=== PATIENT | female | born 1965 | race Caucasian/White ===

== ENCOUNTER 2022-11-10 22:40 | Emergency (ER) | payer OTHER, SELFPAY ==
--- NOTE | ~2022-11-10 | XR_ITS ---
EXAMINATION: XR chest 1V portable INDICATION: Chest pain TECHNIQUE: Portable AP chest at 2320 hours COMPARISON: None available FINDINGS: A masslike opacity projects in the medial left lung base. No pleural effusion or pneumothor ax. The cardiomediastinal silhouette is normal. IMPRESSION: 1. No acute cardiopulmonary abnormality. 2. Masslike opacity in the medial left lung base which could reflect lung mass or possibly eventratio n of the diaphragm. Recommend correlation with any prior imaging. If unavailable, further evaluation with CT of the chest is recommended. Reviewed, dictated and finalized at location A. IMPRESSION: 1. No acute cardiopulmonary abnormality. 2. Masslike opacity in the medial left lung base which could reflect lung mass or possibly eventration of the diaphragm. Recommend correlation with any prior imaging. If unavailable, further evaluation with CT of the chest is recommended .
--- NOTE | 2022-11-10 22:58 | ECG_ITS ---
Measurements Intervals Burns Rate: 113 P: 69 WI: 164 QRS: 16 QRSD: 73 T: 62 QT: 331 QTc: 455 Interpretive Statements SINUS TACHYCARDIA BASELINE ARTIFACT- I, AVR, AVL, AVF, V1-V6 ABNORMAL ECG NO PREVIOUS ECG AVAILABLE FOR COMPARISON Electronically Signed On 11-11-2022 7:41:03 CDT by Mohamud Bunch D.O.
[2022-11-10 23:11] VITALS: PULSE 77; RESP 14
[2022-11-10] MEDS: IPRATROPIUM BR 0.02% INH SOLN 0.5 MG/2.5 ML VIAL INHALATION (23:11)
[2022-11-10] MEDS: ALBUTEROL SULFATE NEB 2.5 MG/3 ML INH INHALATION (23:11)
[2022-11-10] MEDS: ASPIRIN 81 MG CHEWABLE TABLET 324 MG PO (23:15)
[2022-11-10] MEDS: methylPREDNISolone SOD SUCC 125 MG VIAL IV PUSH (23:19)
[2022-11-10] MEDS: MORPHINE SULFATE (*CRX) 4 MG/ML INJ IV PUSH (23:19)
--- NOTE | 2022-11-10 23:20 | ED.GENADULT ---
HPI - General Adult General Chief complaint: Chest Pain Stated complaint: SOB,CP Time Seen by Provider: 11/10/22 23:02 History of Present Illness HPI narrative: Patient is a 57-year-old female who presents to the emergency department with chief complaint of chest pain and shortness of breath. Patient has prior history of COPD and asthma and this evening was at a local establishment and had a few drinks and complains that she is having pain in the left side of her chest patient states the pain feels as though the rib is popping out and does report that she has been coughing and has been more short of breath lately. The patient denies fever the patient reports no prior history of intubation for her COPD. Review of Systems Review of Systems: A 10 system review of systems was completed on the patient and is negative except for what is stated in the HPI. Nursing and ancillary documentation was reviewed. Exam Narrative: GENERAL: Noncooperative, appears to be in moderate pain holding the ribs on the left side of her chest. HEAD: Normocephalic, atraumatic. EYES: PERRLA and EOMI. ENT: Nares clear, no rhinorrhea or epistaxis. Mucous membranes moist. NECK: Supple. CHEST: Clear to auscultation. No respiratory distress. HEART: Regular rate and rhythm. No murmur heard. Normal peripheral pulses. ABDOMEN: Soft, nontender, nondistended, normal active bowel sounds. EXTREMITIES: Normal range of motion. No edema. SKIN: Warm, dry, no rash. NEURO: No focal deficits. Alert and oriented x3. PSYCH: Normal mood and affect. Course Vital Signs Vital signs: Vital Signs Pulse Rate 77 11/10/22 23:11 Respiratory Rate 14 11/10/22 23:11 Pulse Rate 93 11/11/22 00:18 Respiratory Rate 14 11/11/22 00:18 Blood Pressure 104/76 11/11/22 00:18 Pulse Oximetry 96 11/11/22 00:18 Oxygen Delivery Nasal Cannula 11/10/22 23:54 Oxygen Flow Rate 2 11/10/22 23:54 Medical Decision Making [facility] Narrative Medical decision making narrative: Differential diagnosis includes acute alcohol intoxication ACS, COPD exacerbation, pneumonia, pneumothorax, Patient received a DuoNeb IV steroids EKG showed sinus tachycardia rate of [address] elevation or ST depression Chest x-ray interpreted by me showed no evidence of pneumothorax or widened mediastinum COVID and influenza test were negative EtOH was 311 Troponin was negative Electrolytes are within normal limits lipase is also normal While in the emergency department the patient became agitated and decided that she did not want to stay and decided to leave AGAINST MEDICAL ADVICE nursing staff explained risk and benefits to leaving and the patient excepted these risk patient did not sign the AMA paperwork prior to leaving Vital Signs Vital Signs: Vital Signs Pulse Rate 77 11/10/22 23:11 Respiratory Rate 14 11/10/22 23:11 Pulse Rate 93 11/11/22 00:18 Respiratory Rate 14 11/11/22 00:18 Blood Pressure 104/76 11/11/22 00:18 Pulse Oximetry 96 11/11/22 00:18 Oxygen Delivery Nasal Cannula 11/10/22 23:54 Oxygen Flow Rate 2 11/10/22 23:54 Lab Data 11/10/22 23:16 11/10/22 23:16 Labs: Lab Results 11/10/22 11/10/22 11/10/22 Range/Units 23:16 23:16 23:16 WBC 14.3 H (4.5-10.0) K/mm3 RBC 4.22 (4.2-5.4) M/mm3 Hgb 14.2 (12.0-15.0) g/dL Hct 41.5 (37.0-47.0) % MCV 98.3 (80-100) fl MCH 33.6 (26-34) pg MCHC 34.2 (32-36) g/dl RDW 13.4 (11.5-14.5) % Plt Count 245 (150-375) k/mm3 MPV 9.9 (7.4-10.4) fl Immature Gran % (Auto) 0.3 (0-0.5) % Neut % (Auto) 41.1 L (45.5-73.1) % Lymph % (Auto) 47.1 H (18.3-44.2) % [place] % (Auto) 8.6 H (2.6-8.5) % Eos % (Auto) 1.8 (0-4.4) % Baso % (Auto) 1.1 (0.2-1.2) % Lymph # (Auto) 6.76 H (0.9-3.2) K/mm3 [place] # (Auto) 1.2 H (0.1-0.6) K/mm3 Eos # (Auto) 0.3 (0-0.3) K/mm3 Baso # (Auto) 0.2 H (0.0-0.1) K
[2022-11-10 23:21] LABS: Basophils Absolute Auto 0.2 K/mm3 (0.0-0.1); Basophils Percent Auto 1.1 % (0.2-1.2); Eosinophils Absolute Auto 0.3 K/mm3 (0-0.3); Eosinophils Percent Auto 1.8 % (0-4.4); Hematocrit 41.5 % (37.0-47.0); Hemoglobin 14.2 g/dL (12.0-15.0); Immature Granulocyte Absolute 0.04 K/mm3 (0.00-0.031); Immature Granulocyte Percent A 0.3 % (0-0.5); Lymphocytes Absolute Auto 6.76 K/mm3 (0.9-3.2); Lymphocytes Percent Auto 47.1 % (18.3-44.2); Mean Corpuscular HGB Conc 34.2 g/dl (32-36); Mean Corpuscular Hemoglobin 33.6 pg (26-34); Mean Corpuscular Volume 98.3 fl (80-100); Mean Platelet Volume 9.9 fl (7.4-10.4); Monocytes Absolute Auto 1.2 K/mm3 (0.1-0.6); Monocytes Percent Auto 8.6 % (2.6-8.5); Neutrophils Absolute Auto 5.9 K/mm3 (1.3-6.7); Neutrophils Percent Auto 41.1 % (45.5-73.1); Platelet Count Result 245 k/mm3 (150-375); Red Blood Count 4.22 M/mm3 (4.2-5.4); Red Cell Distribution Width 13.4 % (11.5-14.5); White Blood Count 14.3 K/mm3 (4.5-10.0)
[2022-11-10 23:34] LABS: Prothrombin Time 12.6 Seconds (11.1-14.7)
[2022-11-10 23:38] LABS: Alanine Aminotransferase 40 U/L (6-35); Albumin Level 4.8 g/dL (3.5-5.1); Alkaline Phosphatase 78 U/L (38-126); Anion Gap 11 mmol/L (8-16); Aspartate Amino Transferase 36 U/L (14-36); Bilirubin,Total 0.3 mg/dL (0.2-1.3); Blood Urea Nitrogen 11 mg/dL (7-17); Calcium 9.4 mg/dL (8.4-10.2); Carbon Dioxide 23 mmol/L (22-30); Chloride 108 mmol/L (98-107); Estimated Glomerular Filt Rate > 60; Glucose 104 mg/dL (65-110); Lipase 55 U/L (23-300); Potassium 4.1 mmol/L (3.4-5.0); Sodium 142 mmol/L (137-145)
[2022-11-10 23:47] LABS: NT Pro B Type Natriuretic Pept 29 pg/mL (19.9-100); Troponin I < 0.012 ng/mL (0.000-0.034)
[2022-11-10 23:54] VITALS: O2SAT 91
[2022-11-10 23:57] LABS: Ethanol 311 mg/dL (<10)
[2022-11-11 00:03] VITALS: BP 100/60; PULSE 91; RESP 16; O2SAT 96
[2022-11-11 00:18] VITALS: BP 104/76; PULSE 93; RESP 14; O2SAT 96
[2022-11-11 00:46] LABS: Influenza A QL RT-PCR Negative (Negative); Influenza B QL RT-PCR Negative (Negative); SARS-CoV-2 RNA PCR Negative
--- NOTE | 2022-11-11 01:30 | PC.NURSE ---
pt. family called out reporting pt. was having a sz pt. not answering RN, pt. has no known sz disorder. RN sternal rubbed pt. due to not responding to verbal stimuli. pt. responded to painful stimuli and acting appropriate on stretcher.
== END 2022-11-11 01:45 | disposition left against medical advice (07) ==
PROVIDERS: Emergency Provider Emergency Medicine; PCP Family Medicine
DX: R07.89 Other chest pain (principal); J44.9 Chronic obstructive pulmonary disease, unspecified; F10.129 Alcohol abuse with intoxication, unspecified; Z20.822 Contact with and (suspected) exposure to COVID-19
CPT/HCPCS: 36415; 71045; 80053; 80307; 83690; 83880; 84484; 85025; 85610; 85730; 87636; 93005; 94640; 96374; 96375; 99284; A9270; J2270; J2930

== ENCOUNTER 2023-11-20 14:24 | Emergency (ER) | payer OTHER, SELFPAY ==
[2023-11-20 14:34] VITALS: BP 113/77; PULSE 102; RESP 18; TEMP 36.2; O2SAT 97
--- NOTE | 2023-11-20 15:38 | PC.NURSE ---
Pt LWBS causing a scene in lobby.
== END 2023-11-20 15:46 | disposition left against medical advice (07) ==
LOC: ANHED 15:43
PROVIDERS: PCP Family Medicine
DX: Z53.21 Procedure and treatment not carried out due to patient leaving prior to being seen by health care provider (principal)
CPT/HCPCS: 99199

== ENCOUNTER 2024-09-17 13:30 | Outpatient (RCR) | payer MEDICAID, OTHER, SELFPAY ==
--- NOTE | 2024-07-06 09:12 | OPREHPOC ---
Outpatient Therapy Plan of Care This is a Multidisciplinary Plan of Care that may contain components documented by all disciplines (PT, OT, and ST.) PT Problem 1 PT Problem #1 Knowledge Deficit PT Goal 1 Goal / Goal Update [place] with HEP Target Visit 4 PT Goal 2 Goal / Goal Update Patient will report pain no greater than 3/10 consistently for 2 weeks Target Visit 8 PT Problem 2 PT Problem #2 Impaired Gait PT Goal 1 Goal / Goal Update Patient will demonstrate proper use of single point cane in left hand with reduced trunk lean Target Visit 10 PT Goal 2 Goal / Goal Update Patient will improve 2 minute walk test to 300' with use of single point cane Target Visit 10 PT Problem 3 PT Problem #3 Impaired Strength PT Goal 1 Goal / Goal Update Improve R knee extension strength to 4+/5 to improve stability with ADL and walking Target Visit 10 PT Goal 2 Goal / Goal Update Improve R hip abduction strength to 4/5 to improve lateral stability with gait and transfers Target Visit 10 PT Goal 1 Goal / Goal Update Improve R hip flexion strength to 4+/5 to improve foot control and progression with gait and transfers Target Visit 10
--- NOTE | 2024-07-06 09:12 | PTOPEVAL1 ---
Assessment and note entered by Juwan Kirkland, PT Evaluation Information Assessment Status Evaluation Diagnosis S72.91xa Fracture R Femur ICD-10 Condition Codes (PT) Pain in right hip M25.551 Onset February 2024 Subjective Information Original injury occurred with a fall in the middle of the night. She was independent prior to fall. Reports that she had home health following fracture and surgery. She did not have any rehab stay and this is the first she is starting outpatient therapy since. Reports that she is hurting all the time and she is using Lidocaine patches on her hip for the pain and they seem to help a little. She reports taking hydrocodone for pain. She currently cannot traverse stairs and is dependent on cane for mobility and safety. She is not sleeping well as she cannot put any pressure on her right leg and hip. She can get around the house but cannot do any sort of distance without a lot of difficulty. 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 Reported Pain Level Pain Score 9: Self Report Assessment PT Clinical Summary Patient presents with right hip weakness, poor ROM , and poor knee control. Patient has developed bad habits including improper use of single point cane, poor foot progression, and poor stability of hip during ADL performance. Patient really struggled with use of single point cane and gait training and will need extensive training. Will benefit form skilled therapy to address ROM, strength, and functional deficits including combination of functional land and aquatic therapy . Plan of Care Interventions Electrical Stimulation,Gait Training,Hot Pack/Cold Pack,Manual Therapy,Neuro Re-education, Therapeutic Activities,Therapeutic Exercise PT Services Indicated Yes Treatment Frequency and 2x/week for 10 visits Duration These treatments will address the objective and functional deficits as defined above. The patient will be advanced safely and appropriately in order for the patient to progress towards his/her prior level of function. Additional exercises will be introduced and as well as a comprehensive home exercise program upon discharge, if needed, ?to ensure carryover of functional gains achieved in the clinic. This treatment plan has been reviewed and agreement upon by the patient.
--- NOTE | 2024-07-21 14:04 | PCPTNOTE ---
called and canceled , ill. AKS
--- NOTE | 2024-07-28 15:13 | PCPTNOTE ---
Pt arrived for pool appt. but forgot her swim suit, pt agreed to land appt. and when therapist came to bring her back she said she had anther appt that she needed to get too (dog neutered) and had to cancel.
--- NOTE | 2024-08-07 14:09 | OPREHPOC ---
Outpatient Therapy Plan of Care This is a Multidisciplinary Plan of Care that may contain components documented by all disciplines (PT, OT, and ST.) PT Problem 1 PT Problem #1 Knowledge Deficit PT Goal 1 Goal / Goal Update [place] with HEP 08-07-24 progress goal met continue to progress HEP and education Target Visit 17 PT Goal 2 Goal / Goal Update Patient will report pain no greater than 3/10 consistently for 2 weeks 08-07-24 progress goal not met; pain at 9/10 at worst NEW GOAL: pain rating 6/10 at worst Target Visit 17 PT Problem 2 PT Problem #2 Impaired Gait PT Goal 1 Goal / Goal Update Patient will demonstrate proper use of single point cane in left hand with reduced trunk lean 08-07-24 progress goal met Target Visit 10 Progress Met PT Goal 2 Goal / Goal Update Patient will improve 2 minute walk test to 300' with use of single point cane 08-07-24 progress goal not met, improved to 230' continue towards goal Target Visit 17 PT Problem 3 PT Problem #3 Impaired Strength PT Goal 1 Goal / Goal Update Improve R knee extension strength to 4+/5 to improve stability with ADL and walking 08-07-24 progress goal not met continue towards Target Visit 17 PT Goal 2 Goal / Goal Update Improve R hip abduction strength to 4/5 to improve lateral stability with gait and transfers 08-07-24 progress goal not met continue towards Target Visit 17 PT Goal 1 Goal / Goal Update Improve R hip flexion strength to 4+/5 to improve foot control and progression with gait and transfers 08-07-24 progress goal not met continue towards Target Visit 17
--- NOTE | 2024-08-07 14:09 | PTOPPROG ---
Assessment and note entered by Kirstie Davis, PT Assessment Status Progress Diagnosis S72.91xa Fracture R Femur ICD-10 Condition Codes (PT) Pain in right hip M25.551 Onset February 2024 Subjective Information since starting therapy, able to get around the house a little better; with taking a shower yesterday, was able to get into shower by myself; now can get myself in and out of the car- boyfriend does not have to lift my leg for me; drove for the first time last week; stairs are easier to do now. with grocery shopping, have to use the motorized cart. want to continue therapy to get leg stronger PAIN: range in the past week: -04/28: R lateral hip and medial knee increase pain: standing 5 minutes, then have to sit down, lie on R side; decrease pain: sit down, lie down with pillow under knee; hydrocodone 3x/day; with sleeping- pain awakens her 2-3 x/night and then cannot fall back asleep Assessment PT Clinical Summary [place] has received 9 PT sessions. Compared to the initial evaluation: pain of R lateral hip and medial knee from to ; self assessment with LE functional scale rating from 81 to 85% limitation in activity level; reported standing tolerance of 5 minutes and with sleeping, awaken 2-3 x/night due to pain; 2 minute walking test distance from 160' to 230', with use of cane; with walking, decreased weight shift onto R LE--pain increase with full weight on R LE; decreased R knee ROM (-5') to 95'; slight increase in strength, but continues to have weakness of R hip and knee; on stairs uses one hand railing and cane; Education for HEP and gait pattern. The goals were partially met. Continue PT for further strengthening and improve mobility skills. Plan of Care Interventions Aquatic Therapy,Gait Training,Hot Pack/Cold Pack, Manual Therapy,Neuro Re-education,Patient/ Caregiver Education,Therapeutic Activities, Therapeutic Exercise,Ultrasound PT Services Indicated Yes Treatment Frequency and 2x/wk for 8 visits Duration These treatments will address the objective and functional deficits as defined above. The patient will be advanced safely and appropriately in order for the patient to progress towards his/her prior level of function. Additional exercises will be introduced and as well as a comprehensive home exercise program upon discharge, if needed, ?to ensure carryover of functional gains achieved in the clinic. This treatment plan has been reviewed and agreement upon by the patient.
--- NOTE | 2024-08-27 16:17 | PCPTNOTE ---
Pt cancelled appt stating she can not make no other reason.
--- NOTE | 2024-09-01 14:09 | PCPTNOTE ---
Pt canceled due to having an MRI and she may need surgery.
--- NOTE | 2024-09-10 14:43 | PCPTNOTE ---
Pt called to cancel her appointment due to not having a ride.
--- NOTE | 2024-09-17 14:18 | PTOPDC ---
Assessment and note entered by Kirstie Davis, PT Assessment Status Discharge Diagnosis S72.91xa Fracture R Femur ICD-10 Condition Codes (PT) Pain in right hip M25.551 Onset February 2024 Subjective Information on Sep 24, going to [facility] for results from CT scan and other tests, may have to have surgery; have been doing the exercises at home from you; at home sometimes use the cane, but mostly hold onto furniture; when go out of the house, use the cane; feel like better since coming in for the therapy; able to get in/out of the bathtub by herself; feel like getting stronger. Reported Pain Level Pain Score Self Report Additional Pain Score Comments pain range of the past week: : R buttock, lateral hip and shoots down leg into medial knee using heat, ice and pain meds to decrease her pain taking 3 hydrocodone/day. problems sleeping because of pain, cannot lie on her R side. Assessment PT Clinical Summary [place] has received 12 PT sessions. She has canceled a total of 6 sessions. Compared to the last progress report: pain rating from to over R hip and thigh; LE functional scale self rating from 85 to % limitation in activity level; slight increase strength in R hip with supine and standing exercises; 2 minute walking test distance with cane from 230' to 325'; active ROM: in sitting: hip flexion 95', knee (-10') to 80'; education for HEP. The goals were partially achieved. She continues to have increased pain with active R hip and knee motions. Discharge PT services. She is to continue with her exercises at home and walking as tolerated. Plan of Care PT Services Indicated No
== END 2024-09-17 15:01 | disposition home or self-care (01) ==
LOC: ANHPT 13:30
PROVIDERS: PCP Internal Medicine Gastroenterology
DX: S72.91XA Unspecified fracture of right femur, initial encounter for closed fracture (principal); M25.551 Pain in right hip
CPT/HCPCS: 97110; 97113; 97116; 97140; 97161; 97530